=== PATIENT | male | born 1980 | race Native Hawaiian/Other Pacific Islander ===

== ENCOUNTER 2019-07-31 09:46 | Outpatient (CLI) | payer OTHER | END 2019-07-31 21:17 | disposition home or self-care (01) | LOC: CT 09:46 | DX: N39.0 Urinary tract infection, site not specified (principal); F41.9 Anxiety disorder, unspecified; G89.4 Chronic pain syndrome; I10 Essential (primary) hypertension; G47.00 Insomnia, unspecified; M25.542 Pain in joints of left hand; R10.32 Left lower quadrant pain; R51 Headache; I16.9 Hypertensive crisis, unspecified; M54.2 Cervicalgia ==

== ENCOUNTER 2022-12-01 15:31 | Observation (INO) | payer OTHER ==
[~2022-12-01] VITALS: Ht 188 cm; Wt 116.7 kg
[2022-12-01 15:35] VITALS: BP 139/101; TEMP 97.5
[2022-12-01 16:02] LABS: PLATELET COUNT 256 K/uL (142-355)
[2022-12-01 16:03] LABS: POTASSIUM 3.4 mmol/L (3.6-5.2)
[2022-12-01 16:15] VITALS: BP 109/75
[2022-12-01 18:39] VITALS: BP 125/68; TEMP 98; Ht 188 cm; Wt 116.7 kg
[2022-12-01 19:57] VITALS: BP 132/78; TEMP 98.7
[2022-12-01] MEDS ORDERED: ALPR0.5T24 PO (20:37)
[2022-12-01] MEDS ORDERED: BELBUCA450 MCG BU (20:39)
[2022-12-01] MEDS ORDERED: BUSPIRONE HYDROC5 MG PO (20:39)
[2022-12-01] MEDS ORDERED: DOXAZOSIN2 M1 PO (20:40)
[2022-12-01] MEDS ORDERED: ESCI20TA PO (20:40)
[2022-12-01] MEDS ORDERED: FINA5TAB2 PO (20:41)
[2022-12-01] MEDS ORDERED: FURO20TA67 PO (20:42)
[2022-12-01] MEDS ORDERED: VITAMIN D50000 UNIT PO (20:44)
[2022-12-01] MEDS ORDERED: HYDR25TA60 PO (20:45)
[2022-12-01] MEDS ORDERED: HYDR50CA21 PO (20:45)
[2022-12-01] MEDS ORDERED: LISI20TA11 PO (20:46)
[2022-12-01] MEDS ORDERED: KLOR-CON M1010 MEQ PO (20:47)
[2022-12-01] MEDS ORDERED: CELEBREX200 MG PO (20:48)
[2022-12-01] MEDS ORDERED: NEURONTIN800 MG PO (20:49)
[2022-12-01] MEDS ORDERED: TIZA4TAB5 PO (20:50)
[2022-12-01] MEDS ORDERED: OXYC10TAB PO (20:52)
[2022-12-01] MEDS ORDERED: METHOTREXA50 MG/2 M2 SC (20:55)
[2022-12-01] MEDS ORDERED: FOLI1TAB26 PO (20:56)
[2022-12-01] MEDS ORDERED: CAPLYTA42 MG PO (20:57)
[2022-12-01] MEDS ORDERED: DEPO-TESTOS200 MG/M1 IM (20:59)
[2022-12-01] MEDS ORDERED: DECONGESTANT30 MG PO (21:00)
[2022-12-01] MEDS ORDERED: [UNRECOGNIZED DRUG - OTHER] PO (21:02)
[2022-12-01 23:30] VITALS: BP 128/81; TEMP 98.6
[2022-12-02 03:31] VITALS: BP 132/76; TEMP 100
[2022-12-02 05:24] LABS: PLATELET COUNT 227 K/uL (142-355)
[2022-12-02 05:53] LABS: POTASSIUM 3.5 mmol/L (3.6-5.2)
[2022-12-02 08:00] VITALS: BP 11/78; TEMP 100.6
[2022-12-02 11:56] VITALS: BP 110/68; TEMP 98.6
[2022-12-02 16:07] VITALS: BP 102/60; TEMP 98
[2022-12-02 19:34] VITALS: BP 97/66; TEMP 99
[2022-12-02 23:34] VITALS: BP 98/57; TEMP 98.9
[2022-12-03 03:39] VITALS: BP 120/76; TEMP 98.7
[2022-12-03 08:00] VITALS: BP 119/72; TEMP 98.7
[2022-12-03] MEDS ORDERED: OXYC10TAB PO (08:51)
== END 2022-12-03 09:40 | disposition home or self-care (01) ==
LOC: ED 15:31 → MED/SURG 17:04
PROVIDERS: ADMIT Family Medicine; ATTEND Internal Medicine
DX: S22.42XA Multiple fractures of ribs, left side, initial encounter for closed fracture (principal); V98.8XXA Other specified transport accidents, initial encounter; Y92.89 Other specified places as the place of occurrence of the external cause; G89.29 Other chronic pain; M62.82 Rhabdomyolysis; R06.02 Shortness of breath; M19.90 Unspecified osteoarthritis, unspecified site; I10 Essential (primary) hypertension; F41.8 Other specified anxiety disorders; Z72.0 Tobacco use
CPT/HCPCS: 80053; 82550; 84484; 85027; 93005; 94664; 94760; 96360; 96361; 96374; 96375; 96376; 99221; 99284; G0378; J1170

== ENCOUNTER 2023-01-07 11:12 | Outpatient (CLI) | payer OTHER ==
[~2023-01-07 11:12] MED LIST: ALPR0.5T24 PO; BELBUCA450 MCG BU; BUSPIRONE HYDROC5 MG PO; CAPLYTA42 MG PO; CELEBREX200 MG PO; DECONGESTANT30 MG PO; DEPO-TESTOS200 MG/M1 IM; DOXAZOSIN2 M1 PO; ESCI20TA PO; FINA5TAB2 PO; FOLI1TAB26 PO; FURO20TA67 PO; HYDR25TA60 PO; HYDR50CA21 PO; KLOR-CON M1010 MEQ PO; LISI20TA11 PO; METHOTREXA50 MG/2 M2 SC; NEURONTIN800 MG PO; OXYC10TAB PO; TIZA4TAB5 PO; VITAMIN D50000 UNIT PO; [UNRECOGNIZED DRUG - OTHER] PO
== END 2023-01-07 19:11 | disposition home or self-care (01) ==
LOC: RAD 11:12
PROVIDERS: ATTEND Physician Assistant
DX: M54.12 Radiculopathy, cervical region (principal); M25.512 Pain in left shoulder